=== PATIENT | male | born 1975 | race Asian ===

== ENCOUNTER 2019-05-01 10:16 | Emergency (ER) | payer MEDICAID, OTHER ==
--- NOTE | 2019-05-01 10:35 | ED ---
Complex/Multi-Sys Presentation - HPI Summary HPI Summary: This patient is a 43 year old M presenting to [facility] accompanied by with a chief complaint of congestions for approximately two weeks. Pt reports that he has nasal drip with clear discharge, SOB, bumps on the sides of throat. Pt denies ear aches, cough, fever and sore throat. Pt has no allergies. Per triage , the patient rates the pain 5/10 in severity. - History Of Current Complaint Chief Complaint: EDUpperRespComplaint Time Seen by Provider: 05/01/19 10:26 Hx Obtained From: Patient Onset/Duration: Lasting Weeks - 2 weeks, Still Present Timing: Constant Severity Currently: Moderate - 5/10 Severity Initially: Moderate Aggravating Factor(s): Nothing Alleviating Factor(s): Nothing Associated Signs And Symptoms: Positive: SOB, Other - neg - sore throat; pos - nasal drip with clear discharge, bumps on the sides of throat. Negative: Cough , Fever - Allergies/Home Medications Allergies/Adverse Reactions: Allergies Allergy/AdvReac Type Severity Reaction Status Date / Time No Known Allergies Allergy Verified 05/01/19 10:22 PMH/Surg Hx/FS Hx/Imm Hx Musculoskeletal History: Reports: Hx Back Problems Psychiatric History: Reports: Hx Substance Abuse Denies: Hx Eating Disorder Infectious Disease History: No Infectious Disease History: Denies: Traveled Outside the [place] in Last 30 Days - Social History Alcohol Use: Occasionally Hx Substance Use: Yes Substance Use Type: Reports: Cocaine Hx Tobacco Use: No Smoking Status (MU): Never Smoked Tobacco Review of Systems Negative: Fever Positive: Nasal Discharge, Other - neg - ear ache, pos - bumps on the sides of throat. Negative: Sore Throat Positive: Shortness Of Breath. Negative: Cough All Other Systems Reviewed And Are Negative: Yes Physical Exam - Summary Physical Exam Summary: VITAL SIGNS: Reviewed. GENERAL: Patient is a well-developed and nourished male who is lying comfortable in the stretcher. Patient is not in any acute respiratory distress. HEAD AND FACE: No signs of trauma. No ecchymosis, hematomas or skull depressions. Positive nasal congestion Maxillary sinus tenderness EYES: PERRLA, EOMI x 2, No injected conjunctiva, no nystagmus. EARS: Hearing grossly intact. Ear canals and tympanic membranes are within normal limits. MOUTH: Oropharynx within normal limits. NECK: Supple, trachea is midline, no adenopathy, no JVD, no carotid bruit, no c- spine tenderness, neck with full ROM. CHEST: Symmetric, no tenderness at palpation LUNGS: Clear to auscultation bilaterally. No wheezing or crackles. CVS: Regular rate and rhythm, S1 and S2 present, no murmurs or gallops appreciated. ABDOMEN: Soft, non-tender. No signs of distention. No rebound no guarding, and no masses palpated. Bowel sounds are normal. EXTREMITIES: FROM in all major joints, no edema, no cyanosis or clubbing. NEURO: Alert and oriented x 3. No acute neurological deficits. Speech is normal and follows commands. SKIN: Dry and warm. Triage Information Reviewed: Yes Vital Signs On Initial Exam: Initial Vitals Temp Pulse Resp BP Pulse Ox 98.7 F 104 16 125/103 96 05/01/19 10:19 05/01/19 10:19 05/01/19 10:19 05/01/19 10:19 05/01/19 10:19 Vital Signs Reviewed: Yes Diagnostics - Vital Signs Vital Signs Temp Pulse Resp BP Pulse Ox 05/01/19 10:19 98.7 F 104 16 125/103 96 - Laboratory Lab Statement: Any lab studies that have been ordered have been reviewed, and results considered in the medical decision making process. - Radiology CXR Radiology Interpretation Completed By: Radiologist Summary of Radiographic Findings: CXR reveals, per radiologist, IMPRESSION: No active cardiopulmonary disease is noted. ED physician has reviewed this radiology report. Re-Evaluation - Re-Evaluation First Eval Re-Evaluation Time: 11:35 Comment: Discussed test results and further plan of care with patient. Lung exam before discharge: CTA B/L. Good air exchange. No wheezing or crackles heard. CVS: S1 and S2 present. No murmurs appreciated. Patient is alert and oriented x 3. Patient is hemodynamically stable. Pt is agreeablge to discharge Complex Multi-Symp Course/Dx Assessment/Plan: This patient is a 43 year old M presenting to [facility] accompanied by with a chief complaint of congestions for approximately two weeks. Pt reports that he has nasal drip with clear discharge, SOB, bumps on the sides of throat. Pt denies ear aches, cough, fever and sore throat. Pt has no allergies. Per triage, the patient rates the pain 5/10 in severity. Rapid strep is negative. Chest x-ray impression: no active cardiopulmonary disease is noted. Therefore believe that the patient has an acute sinusitis and the symptoms have lasted for approximately 2 weeks therefore I believe that the patient would benefit from antibiotics and Flonase. The patient will be a prescription for Augmentin and Flonase. I discussed all the findings and test results with the patient. Patient was instructed to return to the emergency room immediately if any of the symptoms return worsens. Plan of care was discussed with the patient and understands and agrees. All questions were answered at patient satisfaction. There were no further complaints or concerns. Lung exam before discharge: CTA B/L. Good air exchange. No wheezing or crackles heard. CVS: S1 and S2 present. No murmurs appreciated. Patient is alert and oriented x 3. Patient is hemodynamically stable. Patient will be discharged home with follow up PCP in the next 2-3 days - Diagnoses Provider Diagnoses: Acute sinusitis Discharge - Sign-Out/Discharge Documenting (check all that apply): Patient Departure - Discharge Patient Received Moderate/Deep Sedation with Procedure: No - Discharge Plan Condition: Stable Disposition: HOME Prescriptions: Amoxicillin/Clavulanate TAB* [Augmentin TAB 875*] 875 mg PO BID #20 tab Fluticasone [place]AL [place] 50MCG* [Flonase NASAL SPRAY 50MCG*] 2 spray BOTH NARES DAILY #1 btl Patient Education Materials: Sinusitis (ED) Referrals: [facility] [Outside] - 3 Days Additional Instructions: Follow up with your primary care provider within three days. RETURN TO THE ED FOR ANY WORSENING OR NEW SYMPTOMS. - Billing Disposition and Condition Condition: STABLE Disposition: Home - Attestation Statements Document Initiated by Julioibe: Yes Documenting Scribe: Evita Barksdale Provider For Whom Donna is Documenting (Include Credential): Dr Simone Alcazar MD Scribe Attestation: Evita Peng scribed for Dr Simone Alcazar MD on 05/01/19 at 2140. Scribe Documentation Reviewed: Yes Provider Attestation: The documentation as recorded by the Evita dao accurately reflects the service I personally performed and the decisions made by me, Dr Simone Alcazar MD Status of Scribe Document: Viewed
[2019-05-01 11:07] LABS: Rapid Strep Molecular Negative (Negative)
[2019-05-01 12:07] VITALS: BP 123/93
== END 2019-05-01 12:05 | disposition home or self-care (01) ==
LOC: ED 10:16
DX: J01.90 Acute sinusitis, unspecified (principal)
CPT/HCPCS: 71046; 87651; 99282

== ENCOUNTER 2019-05-16 10:53 | Inpatient (IN) | payer OTHER ==
--- NOTE | 2019-05-16 11:07 | ED ---
Psychiatric Complaint - HPI Summary HPI Summary: A 43 y/o male brought in by [facility] ambulance presents to [facility] with a chief complaint of SI with a plan. He said the he had a plan of hanging himself, although he denies any current SI. He says that he has been feeling depressed "for a while", noting that he was going through a break up two months ago. He also notes some cocaine use (not today), and says that he has been to rehab before. Pt denies any fever, chills, erythema of eyes, sore throat, CP, SOB, cough, abdominal pain, N/V, dysuria, hematuria, myalgia, edema, rash, or dizziness. At triage he rated his pain as a 0/10 in severity. He currently works at a restaurant. He claims that he had previous SI, thinking about jumping off of a bridge. He has not been admitted to a hospital before. He denies taking any medications. The patient was sent to the ED after he told his electorate officer about his symptoms. - History Of Current Complaint Time Seen by Provider: 05/16/19 10:59 Hx Obtained From: Patient, EMS Onset/Duration: Gradual Onset, Lasting Weeks, Still Present Timing: Weeks Severity Initially: Mild Severity Currently: Mild Character: Depressed Aggravating Factor(s): Nothing Alleviating Factor(s): Nothing Associated Signs And Symptoms: Positive: Negative Has Suicidal: Reports: Thoughts, With A Plan Has Homicidal: Denies: Thoughts, With A Plan Recent Stressor(s): break up two months ago Ingestion History: Type/Name Of Drug - cocaine - Allergies/Home Medications Allergies/Adverse Reactions: Allergies Allergy/AdvReac Type Severity Reaction Status Date / Time No Known Allergies Allergy Verified 05/01/19 10:22 PMH/Surg Hx/FS Hx/Imm Hx Musculoskeletal History: Reports: Hx Back Problems Sensory History: Denies: Hx Deafness EENT History: Denies: Hx Deafness Psychiatric History: Reports: Hx Substance Abuse Denies: Hx Eating Disorder - Family History Known Family History: Positive: Other - unknown FHx of mental health problems - Social History Alcohol Use: Occasionally Hx Substance Use: Yes Substance Use Type: Reports: Cocaine Hx Tobacco Use: No Smoking Status (MU): Never Smoked Tobacco Review of Systems Negative: Fever, Chills Negative: Erythema Negative: Sore Throat Negative: Chest Pain Negative: Shortness Of Breath, Cough Negative: Abdominal Pain, Vomiting, Nausea Negative: dysuria, hematuria Negative: Myalgia, Edema Negative: Rash Neurological: Negative - dizziness Psychological: Other - positive: SI with a plan [employer]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 (-) Distressed Skin: Warm, Dry HENT: Normocephalic; Atraumatic Eyes: Conjunctiva normal Neck: Musculoskeletal ROM normal neck. (-) JVD, (-) Stridor, (-) Tracheal deviation Cardio: Rhythm regular, rate normal, Heart sounds normal; Intact distal pulses; The pedal pulses are 2+ and symmetric. Radial pulses are 2+ and symmetric. (-) Murmur Pulmonary/Chest wall: Effort normal. (-) Respiratory distress, (-) Wheezes, (-) Rales Abd: Soft, (-) tenderness, (-) Distension, (-) Guarding, (-) Rebound Musculoskeletal: (-) Edema Lymph: (-) Cervical adenopathy Neuro: Alert, Oriented x3 Psych: Pt is tearful Triage Information Reviewed: Yes Vital Signs Reviewed: Yes Diagnostics - Laboratory Result Diagrams: 05/16/19 11:16 05/16/19 11:16 Lab Statement: Any lab studies that have been ordered have been reviewed, and results considered in the medical decision making process. Re-Evaluation - Re-Evaluation First Eval Re-Evaluation Time: 11:04 Change: Unchanged Comment: Pt cleared for MHE Course/Dx - Course Course Of Treatment: A 43 y/o male brought in by [employer] ambulance presents to [facility] with a chief complaint of SI with a plan. He said the he had a plan of hanging himself, although he denies any current SI. He says that he has been feeling depressed "for a while", noting that he was going through a break up two months ago. He also notes some cocaine use (not today), and says that he has been to rehab before. Pt denies any fever, chills, erythema of eyes, sore throat, CP, SOB, cough, abdominal pain, N/V, dysuria, hematuria, myalgia, edema , rash, or dizziness. At triage he rated his pain as a 0/10 in severity. He currently works at a restaurant. He claims that he had previous SI, thinking about jumping off of a bridge. He has not been admitted to a hospital before. He denies taking any medications. The patient was sent to the ED after he told his electorate officer about his symptoms. The physical exam revealed that the patient is tearful. Blood work, chemistries, and toxicology obtained and the patient has been cleared for MHE. Per mental health odd shoe examiner, Dr. Granda has decided that the patient will be a voluntary admit. Dx: mood disorder - Differential Dx/Clinical Impression Provider Diagnosis: Mood disorder - Physician Notifications Discussed Care Of Patient With: Roque Granda Time Discussed With Above Provider: 13:22 Instructed by Provider To: Other - Per mental health odd shoe examiner, Dr. Granda has decided that the patient will be a voluntary admit. Dx: mood disorder Discharge - Sign-Out/Discharge Documenting (check all that apply): Patient Departure - admit All imaging exams completed and their final reports reviewed: Yes Patient Received Moderate/Deep Sedation with Procedure: No - Discharge Plan Condition: Fair Disposition: PSYCHIATRIC FACILITY-[facility] - Attestation Statements Document Initiated by Scribe: Yes Documenting Scribe: Boston Perales Provider For Whom Scribe is Documenting (Include Credential): Giovanni Carbone MD Scribe Attestation: Boston Peng, scribed for Giovanni Carbone MD on 05/16/19 at 1354.
[2019-05-16 11:32] LABS: ABS Basophils 0.1 10^3/ul (0-0.2); ABS Eosinophils 0.7 10^3/ul (0-0.6); ABS Lymphocytes 1.4 10^3/ul (1.0-4.8); ABS Monocytes 0.6 10^3/ul (0-0.8); Eosinophil % 9.1 %; Hematocrit 46 % (42-52); Hemoglobin 15.7 g/dL (14.0-18.0); Lymphocyte % 17.7 %; Mean Corpuscular HGB Conc 34 g/dL (31-36); Mean Corpuscular Hemoglobin 32 pg (27-31); Mean Corpuscular Volume 94 fL (80-94); Mean Platelet Volume 8.4 fL (7.4-10.4); Nucleated Red Blood Cells % 0.1; Platelet Count 273 10^3/uL (150-450); Red Blood Count 4.93 10^6 /uL (4.18-5.48); Red Cell Distribution Width 13 % (10-15); White Blood Count 7.8 10^3/uL (3.5-10.8)
[2019-05-16 11:46] LABS: ALT 16 U/L (7-52); AST 20 U/L (13-39); Albumin 4.2 g/dL (3.2-5.2); Albumin/Globulin Ratio 1.2 (1-3); Alkaline Phosphatase 62 U/L (34-104); Anion Gap 5 mmol/L (2-11); BUN/Creatinine Ratio 12.9 (8-20); Blood Urea Nitrogen 13 mg/dL (6-24); CO2 Carbon Dioxide 29 mmol/L (22-32); Calcium 9.7 mg/dL (8.6-10.3); Chloride 102 mmol/L (101-111); EGFR African American 97.1 (>60); EGFR Non-African American 80.2 (>60); Globulin 3.6 g/dL (2-4); Glucose 87 mg/dL (70-100); Sodium 136 mmol/L (135-145); Total Protein 7.8 g/dL (6.4-8.9)
[2019-05-16 12:43] LABS: Acetaminophen < 15 mcg/mL; Alcohol < 10 mg/dL (<10); Salicylate < 2.50 mg/dL (<30)
[2019-05-16 12:59] LABS: TSH (Thyroid Stimulating Horm) 0.61 mcIU/mL (0.34-5.60)
[2019-05-16] MEDS ORDERED: Acetaminophen TAB* 325 MG PO PRN (13:25)
[2019-05-16] MEDS ORDERED: Al Hydrox/Mg Hydrox/Simet LIQ* 30 ML UDC PO PRN (13:25)
[2019-05-16] MEDS ORDERED: LORazepam TAB(*) 1 MG PO SCH (14:00)
[2019-05-17 07:43] LABS: HDL Cholesterol 68.2 mg/dL
[2019-05-17] MEDS: Thiamine TAB* 100 MG TAB PO SCH (12:15)
[2019-05-17] MEDS: Fluticasone NASAL SPRAY 50MCG* 16 gm SPRAY BTL BOTH NARES SCH (12:15)
[2019-05-17] MEDS: Multivitamins/Minerals TAB PO SCH (12:15)
[2019-05-17] MEDS: Folic Acid TAB* 1 MG PO SCH (12:15)
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
[2019-05-17 21:37] LABS: Urine Appearance Clear; Urine Bilirubin Negative (Negative); Urine Blood Negative (Negative); Urine Color Yellow; Urine Glucose Negative (Negative); Urine Ketones Negative (Negative); Urine Nitrite Negative (Negative); Urine Protein Negative (Negative); Urine Specific Gravity 1.016 (1.010-1.030); Urine Urobilinogen Negative (Negative)
[2019-05-17 21:51] LABS: Urine Benzodiazepine Screen None Detected (None Detect); Urine Opiates Screen None Detected (None Detect)
[2019-05-18] MEDS: Folic Acid TAB* 1 MG PO SCH (09:05)
[2019-05-18] MEDS: Fluticasone NASAL SPRAY 50MCG* 16 gm SPRAY BTL BOTH NARES SCH (09:05)
[2019-05-18] MEDS: Multivitamins/Minerals TAB PO SCH (09:06)
[2019-05-18] MEDS: Thiamine TAB* 100 MG TAB PO SCH (09:06)
[2019-05-19 08:04] VITALS: BP 123/86
[2019-05-19] MEDS: Thiamine TAB* 100 MG TAB PO SCH (10:17)
[2019-05-19] MEDS: Multivitamins/Minerals TAB PO SCH (10:17)
[2019-05-19] MEDS: Fluticasone NASAL SPRAY 50MCG* 16 gm SPRAY BTL BOTH NARES SCH (10:17)
[2019-05-19] MEDS: Folic Acid TAB* 1 MG PO SCH (10:17)
--- NOTE | 2019-05-19 17:00 | PN ---
Subjective - Subjective Date of Service: 05/19/19 Service Type: [id number] Hosp care 25 min moderate complexity Subjective: Mele was isolative and pacing the day room and halls. Says he still feels depressed but not suicidal anymore. The break up still hurts a lot but he thinks he is over it now. Very sad looking man who refuses to take any meds. Doen't make any eye contact. Denies hallucinations or delusions. Objective - General Observations Appearance: Unkempt Appears Stated Age: Yes Stature: WNL Posture: WNL Eye Contact: Avoidant Behavior/Activity: Slowed - Interaction Observations Attitude Towards Examiner: Evasive Stated Mood: Dysphoric Affect: Blunted Speech Pattern/Tone: Clear, Delayed Thought Process: Coherent, Circumstantial, [place] Perception: WNL Thought Content: Depressive Thought Process: Lethality: Passive Wish Hallucination Type: Denies Delusion Type: Denies Assessment - Assessment Merits Inpatient Hospitalization: For Immediate Safety, To Initiate Treatment Clinical Impression: Still depresses and not reliable in reporting. Should consider medication and ongoing psychotherapy before discharge. Plan - Plan Treatment Plan: Name: MELE ZELAYA Birthdate: 1975 [id number] Continued Medication Management: Consider Medication Medications: Current Medications Acetaminophen (Tylenol Tab*) 650 mg PO Q4H PRN PRN Reason: for pain; or Temp >101 F Al Hydrox/Mg Hydrox/Simethicone (Maalox Plus*) 30 ml PO Q4H PRN PRN Reason: INDIGESTION Fluticasone Propionate (Flonase Nasal [place] 50mcg*) 2 spray BOTH NARES DAILY [facility] Last Admin: 05/19/19 10:17 Dose: Not Given Folic Acid (Folvite Tab*) 1 mg PO DAILY [facility] Last Admin: 05/19/19 10:17 Dose: Not Given Lorazepam (Ativan Tab(*)) 0 - 6 mg PO .PER [facility] PROTOCOL [facility]; Protocol Multivitamins/Minerals (Theragran/Minerals Tab*) 1 tab PO DAILY [facility] Last Admin: 05/19/19 10:17 Dose: Not Given Thiamine HCl (Vitamin B-1 Tab*) 100 mg PO DAILY [facility] Last Admin: 05/19/19 10:17 Dose: Not Given - Discharge Plan Discharge Plan: Drug/Alcohol Rehab
[2019-05-20] MEDS ORDERED: buPROPion TAB* 100 MG PO ONE (10:07)
[2019-05-20] MEDS: Fluticasone NASAL SPRAY 50MCG* 16 gm SPRAY BTL BOTH NARES SCH (12:56)
[2019-05-20] MEDS: Folic Acid TAB* 1 MG PO SCH (12:56)
[2019-05-20] MEDS: Multivitamins/Minerals TAB PO SCH (12:57)
[2019-05-20] MEDS: Thiamine TAB* 100 MG TAB PO SCH (12:57)
--- NOTE | 2019-05-20 13:53 | PN ---
BSU: Group Therapy Note - Service Type Service Type: [id number] Group Psychotherapy - Cognitive Behavioral Group Therapy ( CBT):Patient attended CBT programming this morning and presented with flat affect that did not vary with discussion. Although responsive to direct prompts to respond to questions, patient did not engage in spontaneous conversation.
--- NOTE | 2019-05-21 12:52 | DS ---
CC: [facility]; [facility] [place] [facility] * DISCHARGE SUMMARY: DATE OF ADMISSION: 05/16/19 DATE OF DISCHARGE: 05/20/19 SUPERVISING PSYCHIATRIST: Dr. Roque Granda.* (DICTATED BY DERREK BEGUM NP) DIAGNOSES: 1. Alcohol-induced mood disorder. 2. Alcohol use disorder. 3. Cocaine use disorder. 4. Rule out major depressive disorder. CONDITION AT THE TIME OF DISCHARGE: Improved. The patient denies suicidal ideation or passive wish. He is agreeable to follow up with both mental health and substance use outpatient treatment. He declines offer of inpatient substance use treatment. He declines offer to remain hospitalized for further stabilization. He submitted a 72-hour notice and due to obligation to treat in least restrictive setting, the patient is being discharged. He started initial dosing of bupropion as an antidepressant. He declined offer of medications for alcohol use disorder. 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 He reports feeling supported by his sister, Betsy. The patient is discharged to home. MENTAL STATUS EXAM: Jorge is a 43-year-old male, tall, athletic build, well -groomed, and casually dressed in his own clothing. He is alert and oriented x3. Eye contact is good. Speech is soft, articulate, and spontaneous. Memory is 3/3. Concentration is fair. Thought content is negative for suicidal ideation and passive wish. Thought process is logical, goal-directed, and coherent. No abnormal psychomotor activity noted. There are no perceptual disturbances noted. Insight and judgment are fair. Fund of knowledge is adequate. INSTRUCTIONS GIVEN TO THE PATIENT: A. Medications: 1. Bupropion SR 100 mg p.o. daily. 2. Flonase nasal spray 2 sprays to both nares daily. B. Diet: Regular. C. Activity: Ambulation as tolerated. Tobacco cessation is not applicable. There are no pending labs or diagnostic studies. D. Followup care: The patient will follow up with [facility] and has an appointment on 05/22/19. He has also agreed to participate in a cohort along with suicide prevention services. E. Substance use followup: The patient is referred back to [facility] [place] for substance use treatment. He does not have a primary care provider and he was given information through [facility] to obtain primary care. HOSPITAL COURSE: Part A: Reason for admission: The patient presented to the emergency department voluntarily due to suicidal ideation and a plan to hang himself in his parents' home. History of Present Illness: Jorge is a 43-year-old male, domiciled, employed, single, never , and no children, who presented to the emergency department via EMS after an appointment with his principal gifts officer. He did not show up for his appointment with the principal gifts officer, so there was a home visit during which the patient disclosed suicidal ideation. He endorses a plan to hang himself in his parents' house. He endorses thoughts of jumping off a bridge. He reports 1 prior attempt at hanging himself. The patient is pleasant and cooperative with interview. He reports that he lost all motivation for life after a woman that he was dating broke up with him. He reports decreased appetite, decreased exercise, and a 20-pound weight loss in the last year. 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 The patient reports cocaine and alcohol use in an effort to abuse himself along with passive wish. He states he would use exorbitant amounts of alcohol and cocaine, not caring if he overdosed and . The patient reports feeling better this morning and submitted a 72-hour notice. He continues to present as flat and tearful. He is not able to identify motivations for living or protective factors. He appears to have poor impulse control and impaired judgment in regard to coping with the recent loss. The patient reports he wants to get back to himself and is primarily circumstantial in regard to exercise and weightlifting. He is a client of [facility] [place]. He has been treated at [facility] and completed programming there. He is currently on parole and remains so for the next 3 years. He has a history of felony incarceration related to burglary secondary to substance use. Part B: Psychiatric treatment rendered: The patient was admitted to the Adult [facility] on voluntary status. Code status is full. He was placed on 15-minute checks for safety. He was encouraged to participate in supportive milieu, individual sessions with staff, and psychoeducational groups. With prompting, he did participate more so in programing. Initially he reported that being hospitalized was similar to being incarcerated and was fearful of interacting with others. He remained hospitalized over a weekend. He declined offer of antidepressants initially. He attended AA meetings and reported these to be helpful. We discussed pattern of substance use since his teenage years and likely self-medication for depression. The patient was open to trying bupropion as an antidepressant. I kept this dose low as he is medication naive and anxious about side effects. The patient reported desire to be discharged as soon as possible. He agreed to trial 1 dose of the medication before leaving. He also reports agreement to continue with outpatient efforts including mental health counseling, psychiatry, and substance use counseling. The patient's mother was notified of discharge and agreed with plan. The patient was receptive to therapeutic efforts and if he continues with therapy he will likely do well, otherwise prognosis is risky. At the time of discharge, risk was mitigated due to stabilization in the hospital and detoxification from alcohol and cocaine. DERREK BEGUM, FRANCA [id number]/[facility] #: [id number]
== END 2019-05-20 14:16 | disposition home or self-care (01) | DRG 774 ==
LOC: ED 10:53 → BSU 13:25
PROVIDERS: ADMIT Psychiatry & Neurology Psychiatry; ATTEND Psychiatry & Neurology Psychiatry
PROC: GZHZZZZ Group Psychotherapy (ICD-10-PCS; principal; 2019-05-20)
DX: F10.94 Alcohol use, unspecified with alcohol-induced mood disorder (principal); R45.851 Suicidal ideations; F14.90 Cocaine use, unspecified, uncomplicated; F32.9 Major depressive disorder, single episode, unspecified; Z87.820 Personal history of traumatic brain injury; Z81.8 Family history of other mental and behavioral disorders
CPT/HCPCS: 36415; 80053; 80061; 80307; 80320; 80329; 81003; 83036; 84443; 85025; 90853; 99222; 99232; 99238; 99284; A9270-GY; G0480

== ENCOUNTER 2021-05-30 12:53 | Observation (INO) ==
[2021-05-30 13:37] LABS: ABS Lymphocytes 0.7 10^3/ul (1.0-4.8); ABS Monocytes 0.1 10^3/ul (0-0.8); ABS Neutrophils 9.2 10^3/ul (1.5-7.7); Hematocrit 42 % (42-52); Hemoglobin 14.8 g/dL (14.0-18.0); Lymphocyte % 6.6 %; Mean Corpuscular HGB Conc 36 g/dL (31-36); Mean Corpuscular Hemoglobin 33 pg (27-31); Mean Corpuscular Volume 93 fL (80-94); Mean Platelet Volume 8.7 fL (7.4-10.4); Platelet Count 271 10^3/uL (150-450); Red Cell Distribution Width 14 % (10-15); White Blood Count 9.9 10^3/uL (3.5-10.8)
[2021-05-30 13:53] LABS: Blood Urea Nitrogen 25 mg/dL (6-24); CO2 Carbon Dioxide 22 mmol/L (22-32); Calcium 9.2 mg/dL (8.6-10.3); Chloride 101 mmol/L (101-111); EGFR African American 100.8 (>60); EGFR Non-African American 83.3 (>60); Glucose 264 mg/dL (70-100); Sodium 132 mmol/L (135-145)
[2021-05-30 14:07] LABS: Anion Gap 9 mmol/L (2-11)
[2021-05-30] MEDS ORDERED: Al Hydrox/Mg Hydrox/Simet LIQ 30 ML UDC PO PRN (14:17)
[2021-05-30 15:28] LABS: HIV 4th Generation Nonreactive (Nonreactive)
[2021-05-30] MEDS ORDERED: oxyCODONE/Acetamin 5/325 mg TAB PO ONE (16:15)
[2021-05-30] MEDS: oxyCODONE/Acetamin 5/325 mg TAB PO PRN (20:30)
[2021-05-30] MEDS ORDERED: oxyCODONE/Acetamin 5/325 mg TAB PO PRN (22:00)
[2021-05-30] MEDS ORDERED: NS 0.9% 1000 ml BAG 1,000 ML IV SCH (23:55)
[2021-05-31] MEDS: oxyCODONE/Acetamin 5/325 mg TAB PO PRN ×2 (02:22→07:39)
[2021-05-31 06:36] LABS: Calcium 8.7 mg/dL (8.6-10.3); EGFR African American 96.2 (>60); EGFR Non-African American 79.5 (>60); Potassium 3.7 mmol/L (3.5-5.0)
[2021-05-31 07:30] VITALS: BP 121/80
[2021-05-31 11:18] LABS: INR 1.07 (0.86-1.15)
== END 2021-05-31 10:55 | disposition left against medical advice (07) ==
LOC: SSU 12:53 → ED 12:53 → SSU 16:30
PROVIDERS: ADMIT Internal Medicine; ATTEND Internal Medicine